=== PATIENT | female | born 1975 ===

== ENCOUNTER 2024-03-28 01:35 | Emergency (ER) | payer MEDICAID, OTHER ==
[~2024-03-28] VITALS: Ht 157.5 cm; Wt 81.8 kg
[2024-03-28 01:41] VITALS: TEMP 98.1
[2024-03-28] MEDS: ONDANSETRON HCL 4 MG/2 ML VIAL IVP ONE (03:10)
[2024-03-28] MEDS: KETOROLAC TROMETHAMINE 30 MG/ML VIAL IVP ONE (03:10)
[2024-03-28] MEDS: SODIUM CHLORIDE 0.9% 1,000 ML IV ONE (03:10)
[2024-03-28 03:13] LABS: BASOPHILS % (AUTO) 0.3 % (0.0-2.0); EOSINOPHILS % (AUTO) 1.3 % (1.0-6.0); HEMATOCRIT 38.9 % (36-46); HEMOGLOBIN 13.2 g/dL (12.0-16.0); LYMPHOCYTES # (AUTO) 0.8 K/uL (1.0-4.8); LYMPHOCYTES % (AUTO) 7.8 % (22.0-44.0); MEAN CORPUSCULAR HEMOGLOBIN 29.9 pg (26.0-34.0); MEAN CORPUSCULAR HGB CONC 33.9 G/dL (31.0-37.0); MEAN CORPUSCULAR VOLUME 88 fL (80-100); MONOCYTES # (AUTO) 0.5 K/uL (0.1-1.0); MONOCYTES % (AUTO) 4.5 % (2.0-9.0); NEUTROPHILS # (AUTO) 9.3 K/uL (1.8-7.7); PLATELET COUNT (AUTO) 235 K/uL (150-450); RED CELL DISTRIBUTION WIDTH 13.3 % (11.5-14.5); WHITE BLOOD COUNT (AUTO) 10.8 K/uL (4.5-11.0)
[2024-03-28 03:15] LABS: ANION GAP 7 mmol/L (8-16); CALCIUM, TOTAL 9.1 mg/dL (8.8-10.5); CARBON DIOXIDE 27 mmol/L (22-29); CHLORIDE 103 mmol/L (98-107); CREATININE 0.51 mg/dL (0.60-1.30); GLOMERULAR FILTR. RATE CALC > 60 mL/min (>60); GLUCOSE,RANDOM 118 mg/dL (70-110); LIPASE 25 U/L (16-77); NEUTROPHILS % (AUTO) 86.1 % (40.0-70.0); POTASSIUM 3.4 mmol/L (3.5-5.1); SODIUM SERUM 137 mmol/L (136-145); UREA NITROGEN, BLOOD 11 mg/dL (7-18)
[2024-03-28 03:24] LABS: LACTIC ACID 0.8 mmol/L (0.4-2.0)
[2024-03-28] MEDS: POTASSIUM CHLORIDE 20 MEQ ER TABLET PO ONE (04:00)
[2024-03-28] MEDS ORDERED: ONDA-104 PO (04:49)
[2024-03-28] MEDS ORDERED: DIPH-1130 PO (04:49)
[2024-03-28 04:51] VITALS: BP 108/72; PULSE 77; RESP 16
[2024-03-28] MEDS: DIPHENOXYLATE/ATROP 2.5-0.025 MG TABLET PO ONE (04:58)
[2024-03-28] MEDS: ACETAMINOPHEN 500 MG TABLET PO ONE (04:58)
[2024-03-28] MEDS: ONDANSETRON HCL 4 MG TABLET PO ONE (04:58)
== END 2024-03-28 05:14 | disposition home or self-care (01) ==
LOC: EMS 01:35
DX: K52.9 Noninfective gastroenteritis and colitis, unspecified (principal); T50.905A Adverse effect of unspecified drugs, medicaments and biological substances, initial encounter; E87.6 Hypokalemia; L40.0 Psoriasis vulgaris; Y92.89 Other specified places as the place of occurrence of the external cause
CPT/HCPCS: 99284; 96374; 96361; 96375; 80048; 83605; 83690; 84703; 85025; 36415; J1885; J2405; Q0162

== ENCOUNTER 2024-11-27 15:21 | Emergency (ER) | payer OTHER ==
[~2024-11-27] VITALS: Ht 157.5 cm; Wt 63.0 kg
[~2024-11-27 15:21] MED LIST: DIPH-1130 PO; ONDA-104 PO
[2024-11-27 15:34] VITALS: BP 138/53; PULSE 86; RESP 22; TEMP 98.6; O2SAT 99
[2024-11-27] MEDS ORDERED: DICL50TA10 PO (15:41)
[2024-11-27] MEDS ORDERED: RISA150P SQ (15:41)
[2024-11-27] MEDS: HYDROCODONE/ACETAMINOPHEN 5-325 MG TABLET PO ONE (17:22)
[2024-11-27] MEDS: KETOROLAC TROMETHAMINE 60 MG/2 ML VIAL IM ONE (17:22)
[2024-11-27] MEDS: CEPHALEXIN MONOHYDRATE 500 MG CAPSULE PO ONE (17:22)
[2024-11-27] MEDS ORDERED: HYDR-4062 PO (18:15)
[2024-11-27] MEDS ORDERED: IBUP-1554 PO (18:15)
[2024-11-27] MEDS ORDERED: CEPH-558 PO (18:15)
== END 2024-11-27 18:24 | disposition home or self-care (01) ==
LOC: EMS 15:21
DX: M62.838 Other muscle spasm (principal); R59.1 Generalized enlarged lymph nodes; Z87.2 Personal history of diseases of the skin and subcutaneous tissue; Z98.890 Other specified postprocedural states
CPT/HCPCS: 99283; 96372; J1885